=== PATIENT | male | born 1960 | race Hispanic/Latino ===

== ENCOUNTER 2018-11-18 00:15 | Observation (INO) ==
[~2018-11-18 00:15] MED LIST: D50W SYRINGE IV ONE; D50W SYRINGE ONE
[2018-11-18 00:59] LABS: BASO# 0.04 X1000 (0.0-0.2); BASO% 0.4 % (0.0-0.8); EOS# 0.35 X1000 (0.0-0.7); EOS% 3.6 % (0.0-10.0); HEMATOCRIT 35.9 % (42.0-52.0); HEMOGLOBIN 12.4 g/dL (14.0-18.0); IMM GRAN# 0.03 X1000 (0.0-0.04); IMM GRAN% 0.3 % (0.0-0.5); LYMPH# 1.41 X1000 (1.2-3.4); LYMPH% 14.6 % (20.5-51.1); MCH 28.6 PG (27-31); MCHC 34.5 g/dL (33-37); MCV 82.7 FL (81-99); MONO# 0.55 X1000 (0.11-0.59); MONO% 5.7 % (1.7-9.3); NEUT% 75.4 % (42.2-75.2); PLT 275 X1000 (130-400); RBC 4.34 XMIL (4.7-6.1); RDW 13.5 % (11.5-14.5); WBC 9.68 X1000 (4.8-10.8)
[2018-11-18 01:08] LABS: PROTIME 12.3 Seconds (11.0-16.0)
[2018-11-18 01:09] LABS: INR 0.87
--- NOTE | 2018-11-18 01:55 | ED EKG INTERP ---
This chart was entered by Kvng Vora Scribe, acting as scribe for Adolfo Ireland MD. EKG Interpretation - EKG Time of EKG reading by physician:: 00:28 EKG Read and Signed by:: Adolfo Ireland EKG Interpretation (*Must complete 3 of following elements*): Abnormal Rate: 71 Rhythm: NSR [place]: normal QRS: normal MI Interval: normal ST Wave: normal Comments: Septal infarct, age undetermined; Abnormal ECG Attestation - Physician/ FESTUS Attestation Patient care was provided by Advanced Practice Provider:: No The physician spent face to face time with patient:: Yes Advanced Practice Provider documentation review:: Supervising physician onsite and consulted in the evaluation and care of this patient. The physician did have a face to face encounter with the patient. This chart was documented by the indicated scribe, (Kvng Vora Scribe) and accurately reflects the services I performed and decisions made by me, Adolfo Ireland MD, as attested by the provider's signature.
[2018-11-18 02:00] LABS: ALBUMIN 4.2 g/dL (3.5-5.0); CALCIUM 9.6 mg/dL (8.8-10.2); CREATININE 1.4 mg/dL (0.7-1.2); POTASSIUM 4.4 mmol/L (3.5-5.1); TOTAL BILIRUBIN 0.3 mg/dL (0.20-1.00); TOTAL PROTEIN 7.3 g/dL (6.3-8.3)
[2018-11-18 02:38] LABS: CK INDEX 0.8 (0.0-2.5); CK-MB 2.43 ng/mL (0.0-5.0)
[2018-11-18] MEDS ORDERED: D50W 500 ML IV SCH (03:30)
[2018-11-18] MEDS ORDERED: DEXTROSE IV SCH (04:13)
--- NOTE | 2018-11-18 04:21 | EKG Report ---
Test Performed on : 11/18/2018 00:27:42 AM Test Reason : syncope Blood Pressure : / mmHG Vent. Rate : 071 BPM Atrial Rate : 071 BPM P-R Int : 198 ms QRS Dur : 084 ms QT Int : 430 ms P-R-T Axes : 055 038 082 degrees QTc Int : 467 ms Normal sinus rhythm. Septal infarct (cited on or before 23-AUG-2014) Abnormal ECG When compared with ECG of 23-AUG-2014 09:49, No significant change was found Unconfirmed Result
[2018-11-18] MEDS ORDERED: D5W 1,000 ML IV SCH (06:00)
--- NOTE | 2018-11-18 06:38 | Diag Imaging Result Doc PS360 ---
EXAM: CT HEAD W/O CONTRAST HISTORY: AMS TECHNIQUE: CT head without contrast COMPARISON: None. FINDINGS: No parenchymal hemorrhage. No epidural or subdural hematoma. No subarachnoid hemorrhage. Mild microvascular ischemic changes. No mass identified on this noncontrasted exam. No hydrocephalus. No sinus opacification. IMPRESSION: No hemorrhage. Mild microvascular ischemic changes.. A preliminary report was given at 1:22 AM This exam was performed using automated exposure control, adjustment of mA or kV according to patient size, and/or use of iterative reconstruction technique. Electronically signed by Woody Ramirez 11/18/2018 6:36 AM
[2018-11-18 07:33] VITALS: BP 158/76
[2018-11-18] MEDS ORDERED: LEVEMIR INSULIN *HA SUBQ SCH (09:00)
[2018-11-18] MEDS ORDERED: FLEXERIL PO PRN (09:09)
[2018-11-18] MEDS ORDERED: AMLODIPINE BESYLATE PO SCH (09:15)
[2018-11-18] MEDS ORDERED: [UNRECOGNIZED DRUG - OTHER] PO SCH (09:15)
[2018-11-18] MEDS ORDERED: CELEXA PO SCH (09:15)
[2018-11-18] MEDS ORDERED: BENAZEPRIL PO SCH (09:15)
[2018-11-18] MEDS ORDERED: LOTENSIN PO SCH (09:30)
[2018-11-18] MEDS ORDERED: NORVASC PO SCH (09:30)
--- NOTE | 2018-11-18 10:11 | HISTORY AND PHYSICAL ---
PRIMARY CARE PROVIDER: TAYLOR Kaba CHIEF COMPLAINT: Hypoglycemia. HISTORY OF PRESENT ILLNESS: This is a 58-year-old male that was brought into the ER per EMS. The states she went into the room at approximately 11:30 when she found the patient unresponsive with sonorous respirations, and states that he felt cool to touch and called EMS. The patient states that he had taken 30units of novolog at 7:30p. The patient was subsequently found to have a blood sugar of 29 per EMS, and was taken to the emergency room where he was given D50 and placed on a D5 drip. The patient was then admitted to [facility] for monitoring of blood sugars and further observation. PAST MEDICAL HISTORY: Includes uncontrolled diabetes myelitis, hypertension, and hyperlipidemia. PAST SURGICAL HISTORY: None. FAMILY HISTORY: Father with heart disease and diabetes. SOCIAL HISTORY: Patient lives with and daughter. Denies any use of alcohol, drugs or tobacco products. ALLERGIES: The patient has no known allergies. MEDICATIONS: 1. Tylenol with codeine. 2. Insulin NovoLog FlexPen 71 units subcu t.i.d. 3. Levemir flex touch 1 unit as ordered at bedtime. 4. Levofloxacin 500 mg p.o. daily. 5. Metformin 500 mg t.i.d. 6. Simvastatin 40 mg tablet. 7. Amlodipine benazepril 10/20 mg. 8. Celexa 20 mg tablet. 9. Cyclobenzaprine 10 mg tablet. Medications will be reconciled. REVIEW OF SYSTEMS: General: He denied fever, chills, or any flu-like symptoms. HEENT: Denies congestion, headaches, vision changes, or dizziness. No stiffness of neck or neck pain noted. Endocrine: Denies excessive thirst, urination, or intolerance to getting cold. Cardiovascular: Patient denies palpitations, chest pain, orthopnea, PND, dyspnea breaths on exertion, or any lower leg edema. Respiratory: Patient denies cough, dyspnea, or shortness of breath. GI: No nausea or vomiting noted. No dysphagia, diarrhea, or constipation. : Patient denies any urgency or frequency. Musculoskeletal: No complaints of weakness or muscle aches. Neurologic: No complaints of syncope, dizziness, tremors, or memory loss. Hematologic: No bruising noted. Psychiatric: The patient does have a history of depression. Skin: No skin rash or lesions noted. LABORATORY AND DIAGNOSTIC: The patient's WBC 9.68, hemoglobin and hematocrit is 12.4 and 35.9. PT 12.3, INR is 0.87, and PTT 32.0. Sodium 142, potassium 4.4, chloride 108, BUN 48, creatinine 1.4, and glucose 228. CK 291, CK-MB 2.43. Troponin is less than 0.010. EKG shows normal sinus rhythm with septal infarct cited on or before 08/23/2014. When compared with the EKG on 08/23/2014, no significant change was found. The patient's head CT impression: No hemorrhage. Mild vascular ischemic changes. PHYSICAL EXAMINATION: VITAL SIGNS: Temperature 98 degrees, pulse 82, respirations 18, blood pressure 158/76, and 98% on room air. GENERAL: This is a 58-year-old well-appearing male. HEENT: Normocephalic. PERRLA. Mucous membranes moist. NECK: No lymphadenopathy. Trachea is midline. No JVD noted. CARDIOVASCULAR: No murmurs, gallops, or rubs. Rate and rhythm regular. RESPIRATORY: Lung sounds are clear and equal bilaterally on auscultation. Respirations nonlabored. GI: Soft, nontender, and nondistended with bowel sounds present in all 4 quadrants. NEUROLOGIC: CN 2 through 12 grossly intact. MUSCULOSKELETAL: 5/5 in all 4 extremities. SKIN: Warm, dry, and intact. ASSESSMENT: 1. Hypoglycemia. 2. Hypertension. 3. Hyperlipidemia. PLAN: Admit to [facility]. Activity up ad nayla. Glucose fingersticks. We will monitor on telemetry. Diabetic diet. Obtain A1c. CBC and comprehensive metabolic panel.Will order home medications once reconciled and follow insulin low-dose protocol. Further Recommendations will be pending per clinical course and response to therapy. Dictated by TAYLOR Hodges for Jacob Ko MD Addendum: Patient seen and examined by myself. Agree with TAYLOR note. It reflects my assessment and plan. Patient is being admitted to hospital for hypoglycemia. Will start D5NS drip and monitor blood sugar every 4 hours. It is most likely related to Humalog he received at night. cc: Jacob Ko MD [facility]
[2018-11-18 10:27] LABS: HEMOGLOBIN A1C 7.3 % (4.8-6.0)
[2018-11-18] MEDS ORDERED: APRESOLINE PO SCH (10:30)
[2018-11-18] MEDS ORDERED: COREG PO SCH (10:30)
[2018-11-18] MEDS ORDERED: GLUCOPHAGE PO SCH (10:30)
[2018-11-18] MEDS ORDERED: HUMALOG (PARKWAY) SUBQ SCH (11:00)
[2018-11-18] MEDS ORDERED: HYDROCHLOROTHIAZIDE PO SCH (21:00)
[2018-11-18] MEDS ORDERED: PRINIVIL PO SCH (21:00)
[2018-11-18] MEDS ORDERED: LIPITOR PO SCH (21:00)
[2018-11-18] MEDS ORDERED: ALDACTONE PO SCH (21:00)
[2018-11-18] MEDS ORDERED: ASPIRIN EC PO SCH (21:00)
--- NOTE | 2018-11-18 22:28 | DISCHARGE SUMMARY ---
ADMISSION DATE: 11/18/2018 DISCHARGE DATE: 11/18/2018 PRIMARY CARE PROVIDER: Mary Jo Denton. ADMISSION DIAGNOSES: 1. Hypoglycemia. 2. Hypertension. 3. Hyperlipidemia. HOSPITAL COURSE: Patient the patient was admitted to the emergency room after found the patient unresponsive. The patient had taken 30 units of NovoLog at 7:30 p.m. and patient was subsequently found to have a blood sugar of 29 per EMS. He was taken to the emergency room and given D50 and placed on a D5 drip and then admitted to [facility] for further monitoring and observation. LABORATORY FINDINGS: WBCs of 9.6, H H of 12.4 and 35.9, platelets are 275. PT was 12.3, INR of 0.87, and PTT of 32. Sodium 142, potassium 4.4, chloride was 108, BUN of 48, creatinine of 1.4. Glucose was 228. Troponin of 0.02. A1c was 7.3. The patient's EKG showed no change from previous EKG and normal sinus rhythm, and when compared with the EKG of 08/23/2014 showed no significant change. head CT no hemorrhage. Mild microvascular ischemic changes are noted. Discharge lab data showed a blood sugar to be 246 with a hemoglobin A1c of 7.3. DISCHARGE MEDICATIONS: Aspirin 81 mg p.o. at bedtime, atorvastatin 40 mg 1 tablet p.o. at bedtime, Coreg 12.5 mg 1 p.o. b.i.d., Celexa 20 mg 1 p.o. daily, hydralazine 25 mg p.o. b.i.d., hydrochlorothiazide 25 mg 1 tab p.o. at bedtime, lisinopril 20 mg 1 tab p.o. at bedtime, spironolactone 25 mg p.o. at bedtime, insulin NovoLog FlexPen to be taken as directed. Levemir 30 units subcu at bedtime, and metformin 500 mg tablet 2 mg p.o. b.i.d. DIET: Patient's diet to be an ADA diet. DISCHARGE ACTIVITY: To be as tolerated. DISCHARGE INSTRUCTIONS: The patient discharged home to self care. The patient to follow up with PCP in 2 weeks. All discharge instructions were reviewed with the patient and verbalized understanding. Dictated by TAYLOR Hodges for Jacob Ko MD Addendum: Patient seen and examined by myself. Agree with OIL FIELD TECHNICIAN note. It reflects my assessment and plan. Patient is being discharged from hospital in stable condition. Will be seen by his primary care doctor in a week. cc: MD Mary Jo Mays
== END 2018-11-18 14:14 | disposition home or self-care (01) ==
LOC: P.ED 00:15 → INTOOBSV 03:30 → P.MEDSURG 03:30
PROVIDERS: ATTEND Internal Medicine
CPT/HCPCS: 70450; 80053; 82550; 82553; 82948; 83036; 84484; 85025; 85610; 85730; 93005; A9270; J1815; XXXXX

== ENCOUNTER 2019-06-07 02:43 | Inpatient (IN) ==
--- NOTE | 2019-06-07 02:55 | PROVIDER DOCUMENTATION ---
HPI-General Adult - General Stated Complaint: HIGH BLOOD SUGAR Time Seen by Provider: 06/07/19 02:48 Source: patient, family Allergies/Adverse Reactions: Patient Allergies Allergy/AdvReac Type Severity Reaction Status Date / Time No Known Allergies Allergy Verified 06/07/19 02:55 Home Medications: Home Medication List Medication Instructions Recorded Confirmed Last Taken Type Citalopram Hydrobromide [Celexa] 1 mg PO DAILY 06/30/14 06/07/19 06/29/14 19:00 History Metformin HCl 2 mg PO BID 06/30/14 06/07/19 06/29/14 19:00 History ATORVAstatin [Lipitor] 1 tab PO HS 11/18/18 06/07/19 Unknown History Aspirin EC 40 mg PO HS 11/18/18 06/07/19 Unknown History Carvedilol [Coreg] 25 mg PO BID 11/18/18 06/07/19 Unknown History Hydralazine [Apresoline] 25 mg PO BID 11/18/18 06/07/19 Unknown History Hydrochlorothiazide 1 tab PO HS 11/18/18 06/07/19 Unknown History Insulin Aspart [Novolog Flexpen] 100 unit SQ DIRECTED #5 ml 11/18/18 06/07/19 Unknown Rx Insulin Detemir [Levemir] 30 unit SQ HS 11/18/18 06/07/19 Unknown History Lisinopril 40 mg PO HS 11/18/18 06/07/19 Unknown History Spironolactone 25 mg PO HS 11/18/18 06/07/19 Unknown History Epinephrine Auto Injector [Epipen] 0.3 mg IM DIRECTED PRN PRN #1 11/23/18 06/07/19 Unknown Rx [email or web address] Magnesium Oxide 400 mg PO DAILY 06/07/19 06/07/19 Unknown History - History of Present Illness -Gen Adult Nature of Presenting Problems: Patient is a 59 year old white male with diabetes and recent UTI who gave himself 20 units of Novolog at 12 midnight for elevated blood sugar. patient now presents with decreased mentation, low blood sugar. Patient also complains of nausea and vomiting for past 3 days after starting Doxycycline for UTI. Denies chest pain or SOB. Followed by Virginia Denton. Review of Systems - Adult - REVIEW OF SYSTEMS - ADULT Constitutional: denies: chills, fever Eyes: reports: no symptoms reported Ears, Nose, Mouth & Throat: denies: throat pain Cardiovascular: denies: chest pain Respiratory: denies: shortness of breath Gastrointestinal: reports: see HPI, nausea, vomiting Genitourinary: reports: no symptoms reported Musculoskeletal: reports: no symptoms reported Integumentary: reports: no symptoms reported Neurological: reports: no symptoms reported Psychiatric: reports: see HPI Endocrine: reports: see HPI Hematologic/Lymphatic: reports: no symptoms reported Allergic/Immunologic: reports: no symptoms reported All Other Systems: Reviewed and Negative Past History - Adult - PAST MEDICAL HISTORY-ADULT Review of Records: reports: Old Records Reviewed, Nursing Assessment Review, Medications Reviewed, Social history reviewed & non-contributory. Major Childhood Illnesses: reports: denies history Cardiovascular: reports: CAD Respiratory: reports: denies history Gastrointestinal: reports: denies history Physical Exam-General - CONSTITUTIONAL General Appearance: alert, no apparent distress, obese, other (generalized weakness, dry oral mucosa) - HEAD, EARS, NOSE, MOUTH & THROAT HENMT: other (clear) - NECK Neck: supple - RESPIRATORY Respiratory: lungs clear - CARDIOVASCULAR Cardiovascular: regular rate, rhythm - GASTROINTESTINAL (ABDOMEN) Abdominal Exam: non tender, soft - GENITOURINARY Male Genitalia: normal genitalia - LYMPHATIC Lymphatic: no adenopathy - MUSCULOSKELETAL Back Exam: normal inspection, no CVA tenderness Extremity: normal range of motion, non-tender - SKIN Integumentary: other (decreased turgor) - PSYCHIATRIC Psych/Mental Status: oriented x 3, anxious Progress - PLAN OF CARE/RESULTS Progress/Plan/Lab Results: Vital Signs - 8 hr 06/07/19 02:47 Temperature 97.9 F Pulse Rate 78 Respiratory Rate 18 Blood Pressure 90/56 O2 Sat by Pulse Oximetry 96 Orders Category Date Time Status FSBS/Accucheck Result NOW Care 06/07/19 02:49 Active Saline Loc NOW Care 06/07/19 02:55 Ordered Snacks TID NOW Care 06/07/19 02:54 Active Result Diagrams: 06/07/19 03:45 06/07/19 03:45 - CONSULTS/PCP/HOSPITALIST Notification #1 *Consult/PCP/Hospitalist*: Dr. Bell, hospitalist adjuster electrical contacts Time Discussed: 05:20 Consult Disposition: Admit Departure - Departure Date of Disposition Decision: 01/19/20 Time of Disposition Decision: 05:19 DIAGNOSIS: JOSE (acute kidney injury), Dehydration, Hypoglycemia, Elevated troponin Disposition: ADMITTED INPATIENT 09 Certified Medical Emergency: Emergent Condition: Stable Referrals and Follow-Ups: VIRGINIA PETER CRNP [Primary Care Provider] - - Critical Care Note This patient required my direct & personal management of CC.: No Attestation - Physician/ FESTUS Attestation Patient care was provided by Advanced Practice Provider:: No The physician spent face to face time with patient:: Yes Advanced Practice Provider documentation review:: Supervising physician onsite and consulted in the evaluation and care of this patient. The physician did have a face to face encounter with the patient.
[2019-06-07] MEDS ORDERED: D50W SYRINGE IV ONE (02:59)
[2019-06-07 03:51] LABS: BASO# 0.04 X1000 (0.0-0.2); BASO% 0.4 % (0.0-0.8); EOS# 0.05 X1000 (0.0-0.7); EOS% 0.5 % (0.0-10.0); HEMATOCRIT 31.7 % (42.0-52.0); HEMOGLOBIN 10.1 g/dL (14.0-18.0); IMM GRAN# 0.02 X1000 (0.0-0.04); IMM GRAN% 0.2 % (0.0-0.5); LYMPH# 1.75 X1000 (1.2-3.4); LYMPH% 16.5 % (20.5-51.1); MCH 28.2 PG (27-31); MCHC 31.9 g/dL (33-37); MCV 88.5 FL (81-99); MONO% 9.4 % (1.7-9.3); MPV 10.3 FL (7.4-10.4); NEUT# 7.73 X1000 (1.4-6.5); PLT 278 X1000 (130-400); RBC 3.58 XMIL (4.7-6.1); WBC 10.59 X1000 (4.8-10.8)
[2019-06-07 04:35] LABS: ALBUMIN 4.2 g/dL (3.5-5.0); CALCIUM 9.8 mg/dL (8.8-10.2); POTASSIUM 4.5 mmol/L (3.5-5.1); TOTAL BILIRUBIN 0.3 mg/dL (0.20-1.00)
[2019-06-07 04:37] LABS: TOTAL PROTEIN 6.7 g/dL (6.3-8.3)
[2019-06-07 04:38] LABS: CREATININE 3.9 mg/dL (0.7-1.2)
[2019-06-07 04:43] LABS: URINE SOURCE CLEAN CATCH
[2019-06-07] MEDS ORDERED: NS 1,000 ML IV ONE ×2 (04:44→05:40)
[2019-06-07 04:50] LABS: BILIRUBIN URINE NEGATIVE (NEGATIVE); BLOOD URINE NEGATIVE (NEGATIVE); COLOR YELLOW; GLUCOSE URINE NEGATIVE (NEGATIVE); KETONE URINE TRACE mg/dL (NEGATIVE); LEUKOCYTES URINE NEGATIVE (NEGATIVE); NITRITE URINE NEGATIVE (NEGATIVE); PH URINE 5.5; PROTEIN URINE 200 mg/dL (NEGATIVE); SP GRAVITY URINE 1.021; TURBIDITY URINE CLEAR (CLEAR); UROBILINOGEN URINE 2 mg/dL (NORMAL)
[2019-06-07 04:52] LABS: UR EPITHELIAL CELLS <10 /HPF (<10); URINE BACTERIA NEGATIVE /HPF; URINE RBC <10 /HPF (<10); URINE WBC <10 /HPF (<10)
[2019-06-07] MEDS ORDERED: ZOFRAN IV PRN (05:40)
[2019-06-07] MEDS ORDERED: D50W SYRINGE IV PRN ×2 (05:44→08:18)
--- NOTE | 2019-06-07 07:56 | Diag Imaging Result Doc PS360 ---
EXAM: CT ABDOMEN/PELVIS W/O CONTRAST 06/07/2019 HISTORY: JOSE TECHNIQUE: This exam was performed using automated exposure control, adjustment of mA or kV according to patient size, and/or use of iterative reconstruction technique. COMMENT: There are calcified nodes in the left hilum. There is no evidence of acute disease in the visualized portion of the chest. There is a splenule in the left upper quadrant. There is questionable sediment or small stones layering dependently in the gallbladder. There is no evidence of nephrolithiasis or hydronephrosis. There is no evidence of bowel obstruction or appendicitis. There is a fat-containing umbilical hernia. The aorta is not distended. There is no evidence of diverticulitis. There is no free fluid. The urinary bladder is not distended. There are degenerative disc and facet changes in the lumbar spine. No acute bony abnormalities are present. IMPRESSION: No evidence of obstructive uropathy. Questionable cholelithiasis. Electronically signed by Feliberto Cornelius 06/07/2019 7:54 AM
[2019-06-07 08:29] LABS: BASO# 0.04 X1000 (0.0-0.2); BASO% 0.6 % (0.0-0.8); EOS# 0.15 X1000 (0.0-0.7); EOS% 2.1 % (0.0-10.0); HEMATOCRIT 36.5 % (42.0-52.0); HEMOGLOBIN 12.2 g/dL (14.0-18.0); IMM GRAN# 0.01 X1000 (0.0-0.04); IMM GRAN% 0.1 % (0.0-0.5); LYMPH# 1.29 X1000 (1.2-3.4); LYMPH% 18.4 % (20.5-51.1); MCH 29.5 PG (27-31); MCHC 33.4 g/dL (33-37); MCV 88.4 FL (81-99); MONO# 0.68 X1000 (0.11-0.59); MONO% 9.7 % (1.7-9.3); MPV 10.6 FL (7.4-10.4); NEUT# 4.85 X1000 (1.4-6.5); NEUT% 69.1 % (42.2-75.2); PLT 244 X1000 (130-400); RBC 4.13 XMIL (4.7-6.1); RDW 13.2 % (11.5-14.5); WBC 7.02 X1000 (4.8-10.8)
[2019-06-07 08:31] LABS: HEMOGLOBIN A1C 6.4 % (4.8-6.0)
[2019-06-07 08:34] LABS: IRON SATURATION 14 %; TIBC 251 ug/dL; TOTAL IRON 34 ug/dL (53-167); UNBOUND IRON 217 ug/dL (112-346)
[2019-06-07 08:50] LABS: ALBUMIN 3.8 g/dL (3.5-5.0); CALCIUM 9.3 mg/dL (8.8-10.2); CREATININE 3.6 mg/dL (0.7-1.2); POTASSIUM 4.8 mmol/L (3.5-5.1); TOTAL BILIRUBIN 0.3 mg/dL (0.20-1.00); TOTAL PROTEIN 6.6 g/dL (6.3-8.3)
[2019-06-07] MEDS ORDERED: COREG PO SCH (09:00)
[2019-06-07] MEDS: CELEXA PO SCH (10:35)
[2019-06-07] MEDS: NS 1,000 ML IV SCH ×3 (10:36→21:55)
[2019-06-07] MEDS: MAG-OX PO SCH (10:36)
[2019-06-07] MEDS: COREG PO SCH ×2 (10:36→20:53)
[2019-06-07] MEDS: HUMULIN R (PARKWAY) SUBQ SCH ×3 (12:11→21:55)
[2019-06-07] MEDS ORDERED: MAALOX PLUS LIQUID PO ONE (12:24)
[2019-06-07 12:40] LABS: UR CREAT RANDOM 99.6 mg/dL (14-26)
--- NOTE | 2019-06-07 12:44 | HISTORY AND PHYSICAL ---
PRIMARY CARE PROVIDER: TAYLOR Knott. CHIEF COMPLAINT: Blood sugars up and down. HISTORY OF PRESENT ILLNESS: Mr. Juan Simons is a 59-year-old, male, who speaks [place]ine[place] without difficulties. is at the bedside. States that he came home close to midnight last night, checked his blood glucose level. It was greater than 500. He took 20 units of NovoLog and rechecked his sugar, it was down to 60, so then he ate a half of a peanut butter and jelly with some milk, and it was back up to the 400, so they brought him in. He did have some chills, but otherwise no complaints. Apparently, around 3 or 4 days ago, he started taking doxycycline for a urinary tract infection, and developed nausea and vomiting for at least 3 or 4 days. Last dose of doxycycline was last night. Currently, his blood glucose levels have been much more controlled. He has been started back on a diet. However, he has been dehydrated secondary to the nausea and vomiting, in addition to the fact that he is taking DERIAN inhibitor as well, so he could have some acute tubular necrosis. He is still having urine output without any difficulties. There are no signs of urinary tract infection, so he will be aggressively hydrated. PAST MEDICAL HISTORY: 1. Diabetes mellitus type 2. 2. Hypertension. 3. Hyperlipidemia. PAST SURGICAL HISTORY: None. SOCIAL HISTORY: Denies tobacco, alcohol, or illicit drug use. Lives at home with his and daughter. 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 FAMILY HISTORY: Father with heart disease and diabetes. ALLERGIES: No known drug allergies. HOME MEDICATIONS: 1. Aldactone 25 mg p.o. nightly. 2. Lisinopril 40 mg p.o. nightly. 3. Apresoline 25 mg p.o. twice daily. 4. Aspirin enteric-coated 81 mg p.o. nightly. 5. Zyrtec 20 mg p.o. daily. 6. Coreg 25 mg p.o. twice daily. 7. Doxycycline 100 p.o. twice daily. 8. Hydrochlorothiazide 25 mg p.o. nightly. 9. Levemir 30 units subcutaneously nightly. 10. Lipitor 40 mg p.o. nightly. 11. Magnesium oxide 400 mg p.o. daily. 12. He has an EpiPen if needed, for which he did not say what that allergy was. 13. NovoLog insulin 10 units subcutaneously with each meal. REVIEW OF SYSTEMS: A 14-point review of systems was complete, and all were negative, except for those mentioned in the above HPI. 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 PHYSICAL EXAMINATION: VITAL SIGNS: Temperature 98.1 degrees, heart rate 81, respiratory rate 20, blood pressure 132/68, O2 saturation 98% on room air. Height 5 feet 8 inches tall, 224 pounds, BMI is 34.1. GENERAL: Mr. Juan Simons is a 59-year-old, male. He is in no acute distress. He is able to answer questions appropriately. HEENT: Atraumatic, normocephalic. Pupils equal, round, reactive to light. Extraocular movements intact. Mucous membranes are dry. NECK: Trachea midline. CARDIOVASCULAR: S1, S2. Regular rate and rhythm. No rubs, gallops, murmurs. No lower extremity edema. There are +2 dorsalis and radial pulses. Negative for JVD or carotid bruits. PULMONARY: Clear to auscultation. Bilateral breath sounds. No accessory muscle use or work of breathing noted. GASTROINTESTINAL: Soft, nontender, nondistended. Positive bowel sounds x4. EXTREMITIES: Moves all extremities equally. Full range of motion. NEUROLOGIC: A and O x3. Follows commands. Sensory is intact. SKIN: Warm, dry, intact. LABORATORY DATA: White blood cells 7000, hemoglobin 12, hematocrit 36, platelet count 244,000. Sodium 142, potassium 4.8, BUN 85, creatinine is 3.6, glucose 118. Hemoglobin A1c is 6.4. Calcium is 9.3. Iron is 34, total iron-binding capacity is 251, saturation 14, unsaturated 217, ferritin is pending. Bilirubin 0.30, AST 37, ALT 9. Troponin went from 67 down to 60. Albumin 3.8. B12 is 565. Urinalysis shows 200 protein, trace ketones, 2 urobilinogen, otherwise negative. IMAGING: Abdominopelvic CT: No evidence of obstructive uropathy, questionable cholelithiasis. ASSESSMENT AND PLAN: 1. Acute kidney injury with risk of it being acute tubular necrosis on top of having prerenal secondary to dehydration and being on medications that can be nephrotoxic in a dehydrated state. Angiotensin-converting enzyme has been held. Diuretics are held, and he is going to get intravenous fluid hydration. Will recheck creatinine in the morning, and get a renal ultrasound. 2. Uncontrolled diabetes mellitus type 2 with hyper and hypoglycemic episodes over the last 12 hours, has stabilized out much more. Hemoglobin A1c is not too bad at 6.4. Actually, this is the best his hemoglobin A1c has been. Back in November, it was 7.3. Back in 2018, it was 11.6, so it is much more controlled now than it has been. Will do pattern blood glucoses, sliding scale insulin, diabetic diet, and dextrose if needed as needed. 3. Anemia. It looks like there is some mild iron-deficiency anemia. He denies any blood in the stool, but it is stable. 4. Hypertension. Will just continue the beta audrey, but only at half the dose to prevent any hypotension. 5. Hyperlipidemia. Continue statin. 6. Recent reported urinary tract infection, but that is negative at this time, and the doxycycline was causing him to have nausea and vomiting, so we will not resume the doxycycline. 7. Deep venous thrombosis prophylaxis. Sequential compression devices. Dictated by TAYLOR Martínez for Jose Leung MD cc: TAYLOR Martínez MD
--- NOTE | 2019-06-07 13:01 | Diag Imaging Result Doc PS360 ---
EXAM: US RENAL 2 (RETROPER) COMPLETE 06/07/2019 HISTORY: mitzi TECHNIQUE: Renal ultrasound COMMENT: The kidneys are without evidence of hydronephrosis or mass. The urinary bladder is not distended. The right kidney is 13.1 x 6.3 x 6.3 cm the left is 13.4 x 5.3 x 5.3 cm. There is an apparent cortical calcification in the left kidney measuring less than 3 mm and in the right kidney there is a cortical calcification or calyceal stone also measuring less than 3 mm. IMPRESSION: No evidence of hydronephrosis. Questionable right nephrolithiasis. Left nephrocalcinosis. Electronically signed by Feliberto Cornelius 06/07/2019 12:59 PM
--- NOTE | 2019-06-07 13:53 | HISTORY AND PHYSICAL ---
ADDENDUM: Patient seen and examined by myself. Full note dictated and discussed with nurse practitioner. The patient presented to the hospital, and through the workup, was noted to have acute renal failure. His creatinine, date of 11/18/2018, was 1.4. On admission to the ER currently, it is 3.9. The patient denies any nausea, vomiting. Denies any decreased oral intake. We are going to admit him to the hospital, IV fluids, control his diabetes. Further orders as needed. We are going to stop his DERIAN inhibitor as well as his hydrochlorothiazide, and will follow. cc: Jose Leung MD
[2019-06-07 14:49] LABS: FERRITIN 215 ng/mL (30-400)
--- NOTE | 2019-06-07 14:58 | EKG Report ---
Test Performed on : 06/07/2019 05:41:39 AM Test Reason : pain Blood Pressure : / mmHG Vent. Rate : 076 BPM Atrial Rate : 076 BPM P-R Int : 148 ms QRS Dur : 084 ms QT Int : 400 ms P-R-T Axes : 044 037 104 degrees QTc Int : 450 ms Normal sinus rhythm. Anterior infarct (cited on or before 23-AUG-2014) Abnormal ECG When compared with ECG of 18-NOV-2018 00:27, Questionable change in initial forces of Anteroseptal leads Unconfirmed Result
[2019-06-07] MEDS: LIPITOR PO SCH (20:53)
[2019-06-07] MEDS: ASPIRIN EC PO SCH (20:53)
[2019-06-07] MEDS: LEVEMIR INSULIN *HA SUBQ SCH (21:55)
[2019-06-08] MEDS: NS 1,000 ML IV SCH (04:43)
[2019-06-08] MEDS: HUMULIN R (PARKWAY) SUBQ SCH ×4 (06:36→21:29)
[2019-06-08 07:50] LABS: HEMATOCRIT 32.4 % (42.0-52.0); MCH 27.6 PG (27-31); MCHC 30.9 g/dL (33-37); MCV 89.5 FL (81-99); MPV 10.3 FL (7.4-10.4); RBC 3.62 XMIL (4.7-6.1); RDW 12.8 % (11.5-14.5); WBC 6.83 X1000 (4.8-10.8)
[2019-06-08 07:57] LABS: ALBUMIN 3.8 g/dL (3.5-5.0); CREATININE 1.7 mg/dL (0.7-1.2); MAGNESIUM 2.1 mg/dL (1.5-2.7); PHOSPHORUS 2.5 mg/dL (2.7-4.5); POTASSIUM 5.1 mmol/L (3.5-5.1); TOTAL BILIRUBIN 0.3 mg/dL (0.20-1.00); TOTAL PROTEIN 6.5 g/dL (6.3-8.3)
[2019-06-08] MEDS ORDERED: NS 1,000 ML IV SCH (08:23)
[2019-06-08] MEDS: MAG-OX PO SCH (10:06)
[2019-06-08] MEDS: COREG PO SCH ×2 (10:06→20:16)
[2019-06-08] MEDS: APRESOLINE PO SCH ×2 (10:06→20:16)
[2019-06-08] MEDS: CELEXA PO SCH (10:07)
--- NOTE | 2019-06-08 19:20 | PROGRESS NOTE ---
DATE: 06/08/2019 SUBJECTIVE: Patient states that he is feeling better. Denies any fevers, chills. Denies any cough, congestion. PHYSICAL EXAMINATION: Vital Signs: Reviewed. Temperature 97.6 degrees, pulse 60, respiratory rate 20, BP stable. General: Patient is pleasant. He is in no distress. HEENT: Normocephalic. Neck: Supple. Cardiovascular: Regular rate. Chest: Clear and nonlabored. Abdomen: Soft and nondistended. Extremities: Moves all extremities. Neurologic: No focal changes. Skin: Warm, dry. No rashes. ASSESSMENT: 1. Acute renal failure. Creatinine actually is improved, currently down to BUN 49 and creatinine 1.7. We are going to stop his fluids, restart his blood pressure medication, lisinopril, and recheck his labs in the morning. 2. Hypertension. Blood pressures are elevated. We are going to restart his lisinopril. Continue Coreg and will follow. 3. Diabetes. Continue insulin. 4. If his labs are normal and his blood pressure is stable as well as blood sugar, hopefully he can discharge home in the a.m. His renal ultrasound was normal. cc: Jose Leung MD
[2019-06-08] MEDS: ASPIRIN EC PO SCH (20:16)
[2019-06-08] MEDS: LIPITOR PO SCH (20:17)
[2019-06-08] MEDS: LEVEMIR INSULIN *HA SUBQ SCH (20:17)
[2019-06-08] MEDS ORDERED: PRINIVIL PO SCH (21:00)
[2019-06-09] MEDS: HUMULIN R (PARKWAY) SUBQ SCH ×2 (06:31→11:34)
[2019-06-09 06:56] LABS: HEMATOCRIT 33.1 % (42.0-52.0); HEMOGLOBIN 10.3 g/dL (14.0-18.0); MCH 27.6 PG (27-31); MCHC 31.1 g/dL (33-37); MCV 88.7 FL (81-99); MPV 10.6 FL (7.4-10.4); RBC 3.73 XMIL (4.7-6.1); RDW 12.6 % (11.5-14.5); WBC 7.2 X1000 (4.8-10.8)
[2019-06-09 07:27] LABS: AGAP 10; ALBUMIN 3.7 g/dL (3.5-5.0); ALKALINE PHOSPHATASE 96 U/L (32-122); BUN 32 mg/dL (8-22); CALCIUM 9.1 mg/dL (8.8-10.2); CHLORIDE 108 mmol/L (98-107); COSMO 289; CREATININE 1.2 mg/dL (0.7-1.2); ESTIMATED GFR > 60; GLUCOSE 112 mg/dL (70-104); GOT 21 U/L (10-34); GPT 24 U/L (10-44); POTASSIUM 4.7 mmol/L (3.5-5.1); SODIUM 141 mmol/L (136-145); TCO2 23 mmol/L (25-35); TOTAL PROTEIN 6.6 g/dL (6.3-8.3)
[2019-06-09 08:01] VITALS: BP 178/83
[2019-06-09] MEDS: APRESOLINE PO SCH (10:27)
[2019-06-09] MEDS: CELEXA PO SCH (10:27)
[2019-06-09] MEDS: COREG PO SCH (10:27)
[2019-06-09] MEDS: MAG-OX PO SCH (10:27)
--- NOTE | 2019-06-10 05:54 | DISCHARGE SUMMARY ---
ADMISSION DATE: 06/07/2019 DISCHARGE DATE: 06/09/2019 ADMITTING DIAGNOSES: 1. Acute kidney injury. 2. Uncontrolled diabetes mellitus type 2. 3. Anemia. 4. Hypertension, chronic. 5. Hyperlipidemia, chronic. 6. Recent urinary tract infection. DISCHARGE DIAGNOSES: 1. Acute renal failure, resolved. 2. Hypertension, chronic. 3. Diabetes mellitus type 2, chronic. 4. Hyperlipidemia, chronic. PROCEDURES AND FINDINGS: 1. CT of the abdomen and pelvis done on 06/07/2019 shows no evidence of obstructive uropathy and questionable cholelithiasis. 2. Renal ultrasound done on 06/07/2019 shows no evidence of hydronephrosis and a questionable right nephrolithiasis. It shows left nephrocalcinosis that measures less than 3 mm. HOSPITAL COURSE: Mr. Simons is a 59-year-old male that presented to the ER who stated that he had checked his blood sugar, and it was greater than 500. He took 20 units of NovoLog. When he rechecked his sugar, it was 60 so he ate a peanut butter and jelly sandwich and some milk. He took his sugar again some 30 minutes later, and it was greater than 400 so he decided to come to the ER. He did not complain of any other symptoms except for some chills. The patient had recently been on an antibiotic for a UTI. The antibiotic was doxycycline. The patient did have some nausea and vomiting with the doxycycline for at least 3 to 4 days. This was a 5 day course of doxycycline, and his last dose was the night before he came in the hospital. The patient said he felt like he had been dehydrated because he was having some nausea and vomiting from the doxycycline. The patient was admitted to the medical floor. Laboratory findings were noted for the patient's creatinine to be 3.6, BUN of 85 and glucose of 194. Renal ultrasound was completed, and was essentially negative. The patient was placed on IV fluid hydration. Home medications were resumed except for patient's blood pressure medications. The patient was started on sliding scale insulin and diabetic diet. A1c on this admission was noted to be 6.4, which is much improved from the last several admissions on the patient. The patient was not noted to have urinary tract infection. The patient's labs did continue to improve with IV fluid hydration. Creatinine today is 1.2. Blood sugars are essentially normal today being 92 with morning labs. The patient does have a history of iron deficiency anemia. Hemoglobin today is 10.3 and 33.1. These counts are stable. The patient is not having any complaints today. All of his symptoms have resolved. He will be discharged home today. We have held off on one of his home medications. He is not to take his Aldactone until he is instructed by his primary care physician with follow-up labs. DISCHARGE MEDICATIONS: 1. Lisinopril 40 mg p.o. at bedtime. 2. Apresoline 25 mg p.o. b.i.d. 3. Aspirin enteric-coated 81 mg p.o. at bedtime. 4. Sulprim 20 mg p.o. daily. 5. Coreg 25 mg p.o. b.i.d. 6. Hydrochlorothiazide 25 mg p.o. at bedtime. 7. Levemir 30 units subcutaneous at bedtime. 8. Lipitor 40 mg p.o. at bedtime. 9. Mag oxide 40 mg p.o. daily. 10. Epinephrine injection as directed. 11. NovoLog FlexPen 10 units with each meal. DISCHARGE DIET: Patient is to resume diabetic diet as tolerated. DISCHARGE ACTIVITY: Patient is to resume activity as tolerated. DISCHARGE DISPOSITION: The patient is to discharge home with self care. He is to follow up with his primary care physician TAYLOR Kaba next week to recheck his labs and his blood pressure. He is to not take his Aldactone until instructed by his primary care physician. For all other questions and concerns, he is to notify his primary care physician. Dictated by TAYLOR Madrigal for Jose Leung MD cc: MD Mary Jo Laura CRNP [facility]
== END 2019-06-09 12:30 | disposition home or self-care (01) | DRG 684 ==
LOC: P.ED 02:43 → SUATTDRO 02:44 → P.MEDSURG 06:47
PROVIDERS: ATTEND Family Medicine